=== PATIENT | male | born 1990 | race Two or more races ===

== ENCOUNTER 2017-10-04 01:31 | Inpatient (IN) | payer MEDICAID ==
[~2017-10-04] VITALS: Ht 170.2 cm; Wt 61.2 kg
[2017-10-04 01:45] VITALS: BP 138/95
[2017-10-04] MEDS ORDERED: Ketorolac 30mg Inj IV ONE (02:30)
[2017-10-04] MEDS ORDERED: Norco 5mg/325mg tab ORAL ONE (02:30)
--- NOTE | 2017-10-04 02:45 | Emergency Room Report ---
History of Present Illness General Chief Complaint: Upper Extremity Injury Source: Patient Present Illness HPI 27-year-old male presents with right shoulder pain after doing 60 pushups today prereceded by bench press bench press. Patient also did same yesterday. Usually doesnt work out. Patient denies acute pain felt while doing bench press or pushups, onset was hours after finishing work out. Denies any noticeable anatomic abnormality to right shoulder No previous shoulder dislocation Took 2x nyquill to "sleep it off" without improvement Also notes urine "darker than usual." Allergies: Coded Allergies: No Known Allergies (Unverified , 10/04/17) Patient History Past Medical History: none Past Surgical History: none Pertinent Family History: none Social History: Denies: smoking, alcohol use, drug use Immunizations: UTD Reviewed Nursing Documentation: PMH: Agreed; PSxH: Agreed Nursing Documentation-PMH Past Medical History: No History, Except For Hx Gastrointestinal Problems: Yes - gastritis Review of Systems All Other Systems: negative except mentioned in HPI Physical Exam Vital Signs Date Time Temp Pulse Resp B/P (MAP) Pulse Ox O2 Delivery O2 Flow Rate FiO2 10/04/17 01:35 98.3 79 20 138/95 97 Room Air 98.2 Sp02 EP Interpretation: reviewed, normal General Appearance: normal inspection, well appearing, no apparent distress, alert, GCS 15, non-toxic Head: normocephalic, atraumatic Eyes: bilateral eye PERRL, bilateral eye EOMI ENT: normal ENT inspection, hearing grossly normal, normal pharynx, no angioedema, normal voice, TMs + canals normal, uvula midline, moist mucus membranes Neck: normal inspection, full range of motion, supple, thyroid normal, no meningismus, no bony tend Respiratory: normal inspection, lungs clear, normal breath sounds, no rhonchi, no respiratory distress, no retraction, no accessory muscle use, no wheezing, speaking full sentences Cardiovascular #1: regular rate, rhythm, no edema, no JVD, normal capillary refill Gastrointestinal: normal inspection, normal bowel sounds, non tender, soft, no mass, no peritonitis, non-distended, no guarding, no hernia, no pulsatile mass Genitourinary: no CVA tenderness, other - Gross exam of urine: coca-color colored Musculoskeletal: normal inspection, back normal, normal range of motion, no calf tenderness, pelvis stable, Hema's Sign negative, other - Pinpoint focal ttp to anterior right shoulder. No obvious loss of shoulder contour/anatomy. Able to touch left shoulder with right hand. No ttp to upper arm, forearm, wrist /hand. 2+ distal radius. Neurovascularly intact. Neurologic: normal inspection, alert, oriented x3, responsive, tool keeper III-XII nml as tested, motor strength/tone normal, cerebellar normal, normal gait, speech normal Psychiatric: normal inspection, judgement/insight normal, mood/affect normal, no suicidal/homicidal ideation, no delusions Skin: normal inspection, normal color, no rash Lymphatic: normal inspection, no adenopathy Medical Decision Making Diagnostic Impression: Primary Impression: Exertional rhabdomyolysis Additional Impression: Transaminitis ER Course VSS, Afebrile Recent heavy exertional weight lifting, pushups Cola colored urine DDx includes rhabdo, muscle strain, rotator cuff injury Xray: no shoulder dislocation or fx Labs: CK 7,000. K normal. No MEKA Transaminitis as well. Leukocytosis likely stress reaction from severe pain Acute rhabdomyolysis Given 2 LNS IVF hydration and analgesia in the ED Right shoulder/arm compartments remain soft - low suspicion for acute compartment syndrome Med/surg admit Dr Guerra, panel at 436am Other X-Ray Diagnostic Results Other X-Ray Diagnostic Results : X-Ray ordered: Right shoulder # of Views/Limited Vs Complete: 3 View Indication: Pain EP Interpretation: Yes Interpretation: no dislocation, no soft tissue swelling, no fractures Impression: No acute disease Electronically Signed by: Dr Rahat Renee MD Last Vital Signs Date Time Temp Pulse Resp B/P (MAP) Pulse Ox O2 Delivery O2 Flow Rate FiO2 10/04/17 01:45 98.2 79 20 138/95 97 Room Air 98.2 Status: improved Disposition: ADMITTED INPATIENT Condition: Serious Referrals: NOT CHOSEN DAMON/,REFERRING (PCP) RAHAT RENEE M.D. Oct 04, 2017 02:45
[2017-10-04 03:47] LABS: HEMATOCRIT 48.8 % (42.0-52.0); HEMOGLOBIN 16.6 G/DL (14.2-18.0); MEAN CORPUSCULAR VOLUME 84 FL (80-99); PLATELET COUNT 235 K/UL (150-450); RED BLOOD COUNT 5.83 M/UL (4.70-6.10); RED CELL DISTRIBUTION WIDTH 11.3 % (11.6-14.8); WHITE BLOOD COUNT 17.2 K/UL (4.8-10.8)
[2017-10-04 03:52] LABS: ANION GAP 12 mmol/L (5-15); BLOOD UREA NITROGEN 16 mg/dL (7-18); CALCIUM 9.1 MG/DL (8.5-10.1); CARBON DIOXIDE 24 MMOL/L (21-32); CHLORIDE 99 MMOL/L (98-107); CREATININE 1.1 MG/DL (0.55-1.30); POTASSIUM 3.8 MMOL/L (3.5-5.1); SODIUM 135 MMOL/L (136-145)
[2017-10-04 04:06] LABS: ALANINE AMINOTRANSFERASE 320 U/L (12-78); ALBUMIN 4.2 G/DL (3.4-5.0); ALBUMIN/GLOBULIN RATIO 1.3 (1.0-2.7); ALKALINE PHOSPHATASE 89 U/L (46-116); ASPARTATE AMINO TRANSFERASE 1728 U/L (15-37); BILIRUBIN,TOTAL 0.6 MG/DL (0.2-1.0); CREATINE KINASE 7155 U/L (26-308)
[2017-10-04 04:22] LABS: APPEARANCE,URINE CLEAR; BILIRUBIN, URINE NEGATIVE (NEGATIVE); GLUCOSE, URINE (UA) NEGATIVE (NEGATIVE); KETONES,URINE 3+ (NEGATIVE); LEUKOCYTE ESTERASE ,URINE 1+ (NEGATIVE); NITRITE,URINE NEGATIVE (NEGATIVE); PH,URINE 7 (4.5-8.0); PROTEIN,URINE 3+ (NEGATIVE); UROBILINOGEN,URINE NORMAL MG/DL (0.0-1.0)
[2017-10-04 04:49] LABS: COLOR,URINE AMBER
[2017-10-04] MEDS ORDERED: Morphine Sulfate 2mg/ml Inj IVP ONE (06:30)
[2017-10-04] MEDS ORDERED: Morphine Sulfate 4mg/ml Inj IVP ONE (08:15)
[2017-10-04 09:30] VITALS: BP 139/91
[2017-10-04] MEDS: Morphine Sulfate 2mg/ml Inj IVP PRN ×3 (10:16→21:27)
--- NOTE | 2017-10-04 10:17 | Diagnostic Imaging Report ---
Indication: Shoulder pain after weight lifting Technique: 3 views of the left shoulder Comparison: None Findings: No acute fractures or dislocations. Joint spaces are preserved. Impression: Negative This agrees with the preliminary interpretation provided by the emergency room physician
[2017-10-04 12:00] VITALS: BP 150/92
[2017-10-04] MEDS: Sodium Bicarbonate 50 ML in 1/2 NS 1000ml 1,000 ML IV SCH ×2 (12:32→21:26)
--- NOTE | 2017-10-04 15:49 | Diagnostic Imaging Report ---
Indication: Abdominal pain, abnormal liver function tests, history of rhabdomyolysis Technique: Hui-scale and duplex images of the upper abdomen were obtained Comparison: Findings: Gallbladder is unremarkable, without stones, wall thickening, nor pericholecystic fluid. Sonographic Mccabe's sign is negative. Common bile duct measures 3 mm in diameter. No intrahepatic biliary ductal dilatation. Liver demonstrates normal echogenicity, no focal abnormality. Portal vein and hepatic veins are patent. Pancreas is unremarkable. Spleen is unremarkable. Left kidney measures 10.7 cm in length. Right kidney measures 10.4 cm length. Both kidneys demonstrate normal echogenicity. There is no right hydronephrosis. There is mild fullness of the left renal collecting system. No focal abnormality . Non-aneurysmal abdominal aorta . Prevoid bladder volume 200 mL. Postvoid bladder volume 18 mL Impression: Negative for gallstones or dilated ducts Mild left renal collecting system fullness, etiology/significance uncertain
[2017-10-04 15:56] VITALS: BP 138/88
[2017-10-04 20:00] VITALS: BP 138/88
[2017-10-05] VITALS (7 sets, daily range): BP systolic 133–164; BP diastolic 95–110
--- NOTE | 2017-10-05 05:00 | History and Physical Report ---
DATE OF ADMISSION: 10/04/2017 REASON FOR ADMISSION: Rhabdomyolysis. HISTORY OF PRESENT ILLNESS: This is a 27-year-old male with no prior medical history, who experienced pain in his right shoulder after doing 60 pushups and some bench presses over the past two days. These are not regular activities for him. Following the activities several hours later in fact he noted some discomfort of his right shoulder and took NyQuil. This morning, he noted dark urine and diffuse pain in his muscles. In the emergency room, abnormal laboratory studies including transaminitis and elevated CK enzyme have prompted hospitalization. PAST MEDICAL HISTORY: Gastritis. ALLERGIES: None. MEDICATIONS: Prior to admission, none. SOCIAL HISTORY: Nonsmoker. No alcohol or substance abuse. FAMILY HISTORY: Noncontributory. REVIEW OF SYSTEMS: Unremarkable. PHYSICAL EXAMINATION: VITAL SIGNS: Blood pressure 138/95, pulse 79, respiratory rate 20, and afebrile. HEENT: Conjunctivae pink. Sclerae are anicteric. Oropharynx clear. NECK: Supple. Jugular venous pressure normal. LUNGS: Clear. CARDIAC: Regular rhythm and rate. Normal S1, S2 with no murmur, rub, or gallop. ABDOMEN: Soft and nontender. EXTREMITIES: Right shoulder with full range of motion, but some elicited pain with mobility. NEUROLOGIC: Nonfocal. LABORATORY AND DIAGNOSTIC DATA: Lab results, white count 17.2, hemoglobin 16.6. CK 7158. AST and ALT 1728/320, alkaline phosphatase normal. Sodium 135, potassium 3.8, bicarbonate 24, BUN 16, and creatinine 1.1. X-ray of the right shoulder unremarkable. Abdominal ultrasound, slight fullness of the left collecting system of the tract, otherwise unremarkable IMPRESSION: 1. Rhabdomyolysis. 2. Transaminitis. 3. Leukocytosis, no signs of acute infection. 4. Right shoulder strain. PLAN: 1. Hydration. 2. Hepatitis serology. 3. Analgesics. 4. Follow up lab studies. 5. Reassess for further intervention based on clinical parameters. Navid Guerra M.D. DR: [place] JOB#: [id number] CC:
[2017-10-05 07:49] LABS: ALANINE AMINOTRANSFERASE 491 U/L (12-78); ALBUMIN 3.9 G/DL (3.4-5.0); ALBUMIN/GLOBULIN RATIO 1.1 (1.0-2.7); ALKALINE PHOSPHATASE 67 U/L (46-116); ANION GAP 5 mmol/L (5-15); BILIRUBIN,TOTAL 0.6 MG/DL (0.2-1.0); BLOOD UREA NITROGEN 9 mg/dL (7-18); CALCIUM 9.1 MG/DL (8.5-10.1); CARBON DIOXIDE 31 MMOL/L (21-32); CHLORIDE 102 MMOL/L (98-107); POTASSIUM 4.2 MMOL/L (3.5-5.1); SODIUM 138 MMOL/L (136-145)
[2017-10-05 07:52] LABS: BASOPHILS % (AUTO) 0.5 % (0.0-2.0); EOSINOPHILS % (AUTO) 0.9 % (0.0-3.0); HEMATOCRIT 48.6 % (42.0-52.0); HEMOGLOBIN 16.4 G/DL (14.2-18.0); LYMPHOCYTES % (AUTO) 11.5 % (20.0-45.0); MEAN CORPUSCULAR VOLUME 85 FL (80-99); MONOCYTES % (AUTO) 7.3 % (1.0-10.0); NEUTROPHILS % (AUTO) 79.8 % (45.0-75.0); PLATELET COUNT 238 K/UL (150-450); RED BLOOD COUNT 5.74 M/UL (4.70-6.10); RED CELL DISTRIBUTION WIDTH 11.4 % (11.6-14.8); WHITE BLOOD COUNT 12.5 K/UL (4.8-10.8)
[2017-10-05] MEDS: Sodium Bicarbonate 50 ML in 1/2 NS 1000ml 1,000 ML IV SCH ×3 (08:04→20:20)
[2017-10-05 08:06] LABS: ASPARTATE AMINO TRANSFERASE 5888 U/L (15-37)
[2017-10-05 09:13] LABS: CREATINE KINASE 74861 U/L (26-308)
[2017-10-05 09:14] LABS: BILIRUBIN,DIRECT 0.1 MG/DL (0.0-0.3)
[2017-10-05] MEDS ORDERED: Sodium Bicarbonate 50 ML in 1/2 NS 1000ml 1,000 ML IV SCH (15:30)
--- NOTE | 2017-10-05 21:00 | Progress Note ---
DATE: 10/05/2017 INTERNAL MEDICINE PROGRESS NOTE SUBJECTIVE: The patient continues to have pain of his right shoulder, limited mobility noted. No other symptoms. OBJECTIVE: VITAL SIGNS: Afebrile, blood pressure 138/95, heart rate 69, respiratory rate 19. NECK: Supple. LUNGS: Clear. CARDIAC: Regular. ABDOMEN: Soft. No edema. EXTREMITIES: Right shoulder with no palpable masses and can lift only partially without pain. Distal vascular status intact. LABORATORY DATA: White count 12, hemoglobin 16. Chemistry panel within normal limits. AST and ALT are increased to 5800 over 491 and CKs over 70,000. IMPRESSION: 1. Traumatic injury to right shoulder, possible muscle tear. 2. Rhabdomyolysis. 3. Transaminitis. 4. Normal abdominal ultrasound. PLAN: Continue hydration. Renal input. Gastrointestinal input. Attempts at orthopedic input. MRI of the right shoulder. The patient made aware of the progressive hydration at this time. Navid Guerra M.D. DR: Bear JOB#: [id number] CC:
--- NOTE | 2017-10-05 21:00 | Consultation ---
DATE OF CONSULTATION: 10/05/2017 NOTE: "POOR AUDIO QUALITY" GASTROENTEROLOGY CONSULTATION CONSULTING PHYSICIAN: Lucy Steinberg M.D. REFERRING PHYSICIAN: Navid Guerra M.D. CHIEF COMPLAINT: I was asked to see this patient by Dr. Navid Guerra for evaluation of rhabdomyolysis. HISTORY OF PRESENT ILLNESS: The patient is an otherwise healthy 27-year-old man who on Saturday, , and Saturday, noted very heavy weight lifting and pushup exercises to the point of he even sored his muscles. He states that his muscle soreness became so severe and his right shoulder especially was so painful that he came to the emergency room. He is unable to lift his right upper extremity at all due to pain and immobility. He has never had this sort of muscle injury of this sort. He does not use any drugs, does not drink alcohol, and does not take any herbal medications. The only medication he took for pain was 2 NyQuil capsules. He has never had any previous history of muscle or liver disease. He came to the emergency room where he was noted to have white count of 17 which is down to 12.5 today. His CPK was 7,000 on admission and it went to 74,000 today. His AST and ALT were 1700 and 320 and today they were 6000 and 500 respectively. His bilirubin is normal. PAST MEDICAL HISTORY: Otherwise negative. MEDICATIONS: None. FAMILY HISTORY: Noncontributory. SOCIAL HISTORY: The patient does not drink or smoke. He is a student, so he does not use any drugs. REVIEW OF SYSTEMS: Otherwise negative. PHYSICAL EXAMINATION: GENERAL: A pleasant young man seen in his room. HEENT: Normocephalic and atraumatic. Sclerae anicteric. Oropharynx clear. NECK: Supple. CHEST: Clear to auscultation. CARDIOVASCULAR: Regular rate. ABDOMEN: Soft. EXTREMITIES: Revealed no edema. Right shoulder was tender. The patient's right shoulder and chest wall muscles were very sore to palpation. He was unable to lift his right upper extremity. LABORATORY DATA: Noted. ASSESSMENT: This patient presents with laboratory evidence of severe rhabdomyolysis. Based on his history and his examination, this is attributed to upper shoulder injury especially on the right side. Due to the fact that he cannot even lift his right upper extremity. It is concerning and therefore, he should have an MRI of his right shoulder. I would also ask orthopedic clinical services consultant to see him for further evaluation and care. In the meantime, immobilization would be recommended and his liver tests should be followed. If the liver tests are typically elevated and false-positive, then there is no reason at this point is to treat otherwise. Should his liver deteriorate in any additional ways such as elevation of bilirubin, then further evaluation of this adverse effect can be made. I will follow his laboratory parameters closely with you. RECOMMENDATIONS: Per above discussion and per orders written in the chart. Thank you for asking me to participate in the care of this patient. Lucy Steinberg M.D. DR: Aidan JOB#: [id number] CC: SHITAL
[2017-10-05] MEDS: Morphine Sulfate 2mg/ml Inj IVP PRN (21:48)
[2017-10-06] VITALS: BP 146/105
--- NOTE | 2017-10-06 00:45 | Consultation ---
DATE OF CONSULTATION: 10/05/2017 NEPHROLOGY CONSULTATION CONSULTING PHYSICIAN: Ari Doran M.D. REFERRING PHYSICIAN: Navid Guerra M.D. REASON FOR CONSULTATION: Rhabdomyolysis. HISTORY OF PRESENT ILLNESS: The patient is a 27-year-old man who has been doing some vigorous exercises with weights and pushups in the gym and developed pain in the right upper arm and dark urine and rhabdomyolysis. Otherwise, he has been in good health. PAST SURGICAL HISTORY: None. MEDICATIONS: None. ALLERGIES: None. HABITS: He is a nonsmoker except for occasional marijuana. Drugs none. Alcohol rare. REVIEW OF SYSTEMS: Negative except for the above. PHYSICAL EXAMINATION: GENERAL: The patient is alert, well-developed man, in no acute distress. VITAL SIGNS: Normal recorded in the computer. HEENT: Sclerae nonicteric. Ocular motions intact in all directions. Oral mucosa moist. NECK: No adenopathy or thyroid enlargement. LUNGS: Clear. HEART: Regular rhythm. No murmur. ABDOMEN: Soft. No organomegaly or masses. EXTREMITIES: No edema, cyanosis, or clubbing. There is pain in the right biceps, triceps, and shoulder area and it is difficult for him to do range of motion. There is no severe swelling or evidence of a compartment syndrome. PERTINENT LABORATORY AND DIAGNOSTIC DATA: He had a CK of 7155 on 10/04/2017 and 78,861 on 10/05/2017. Electrolytes normal. Creatinine 1.1 and 1.0 serially. IMPRESSION: 1. Rhabdomyolysis due to muscle trauma, severe. 2. Elevated liver enzymes secondary to above. 3. At this time, normal renal function without risk for rhabdomyolysis-induced acute kidney injury. PLAN: The patient needs large volumes of IV fluid with sodium bicarbonate, serial electrolytes, and CPK. We will watch closely in view of the high risk status. Ari Doran M.D. DR: Farnaz JOB#: [id number] CC:
[2017-10-06] MEDS: Sodium Bicarbonate 50 ML in 1/2 NS 1000ml 1,000 ML IV SCH ×4 (02:24→17:51)
[2017-10-06 04:00] VITALS: BP 141/90
[2017-10-06 08:00] VITALS: BP 165/91
[2017-10-06 08:28] LABS: BASOPHILS % (AUTO) 0.8 % (0.0-2.0); EOSINOPHILS % (AUTO) 1.3 % (0.0-3.0); HEMOGLOBIN 16.7 G/DL (14.2-18.0); LYMPHOCYTES % (AUTO) 15.1 % (20.0-45.0); MEAN CORPUSCULAR VOLUME 84 FL (80-99); MONOCYTES % (AUTO) 7.7 % (1.0-10.0); NEUTROPHILS % (AUTO) 75.2 % (45.0-75.0); PLATELET COUNT 248 K/UL (150-450); RED BLOOD COUNT 5.82 M/UL (4.70-6.10); RED CELL DISTRIBUTION WIDTH 11.2 % (11.6-14.8); WHITE BLOOD COUNT 11.9 K/UL (4.8-10.8)
[2017-10-06 09:04] LABS: ALANINE AMINOTRANSFERASE 574 U/L (12-78); ALBUMIN 3.8 G/DL (3.4-5.0); ALBUMIN/GLOBULIN RATIO 1.1 (1.0-2.7); ALKALINE PHOSPHATASE 79 U/L (46-116); ANION GAP 9 mmol/L (5-15); ASPARTATE AMINO TRANSFERASE 2107 U/L (15-37); BILIRUBIN,TOTAL 0.4 MG/DL (0.2-1.0); BLOOD UREA NITROGEN 15 mg/dL (7-18); CALCIUM 9.1 MG/DL (8.5-10.1); CARBON DIOXIDE 29 MMOL/L (21-32); CHLORIDE 100 MMOL/L (98-107); CREATINE KINASE 6121 U/L (26-308); POTASSIUM 3.9 MMOL/L (3.5-5.1); SODIUM 138 MMOL/L (136-145)
--- NOTE | 2017-10-06 09:51 | Diagnostic Imaging Report ---
Indication: Right shoulder pain Technique: MRI of the right shoulder was performed on a 1.5 Crystal magnet without administration of intravascular or intra-articular contrast material and axial, sagittal and coronal sequences were obtained. Comparison: Plain radiographs of the right shoulder 10/04/2017 Findings: There is intramuscular edema involving the deltoid, supraspinatus and short head of the biceps. There is mild edema/fluid in the subacromial/subdeltoid bursa. There is also mild glenohumeral fluid. There is no high-grade tear of the supraspinatus, infraspinatus, subscapularis or teres minor tendons. Long head of the biceps tendon is intact. There is no gross labral tear. Acromioclavicular joint is grossly unremarkable. There is no acute fracture. No bone marrow edema is identified. Impression: Patchy intramuscular edema involving the deltoid, supraspinatus and short head of the biceps. Nonspecific myositis should be considered and clinical correlation recommended. Mild edema/fluid in the subacromial/subdeltoid bursa. Mild nonspecific glenohumeral joint fluid. No high-grade rotator cuff tendon tear.
[2017-10-06 12:00] VITALS: BP 137/100
--- NOTE | 2017-10-06 12:46 | Nephrology Progress Note ---
Assessment/Plan Problem List: (1) Right shoulder injury (2) Transaminitis (3) Exertional rhabdomyolysis Plan continue hydration Subjective Constitutional: Reports: no symptoms HEENT: Reports: no symptoms Genitourinary: Reports: no symptoms Neurologic/Psychiatric: Reports: no symptoms Objective Objective Last 24 Hour Vital Signs Date Time Temp Pulse Resp B/P (MAP) Pulse Ox O2 Delivery O2 Flow Rate FiO2 10/06/17 12:00 98.0 83 21 137/100 98 Room Air 98.0 10/06/17 08:00 98.1 87 18 165/91 97 Room Air 98.1 10/06/17 04:00 98.0 66 19 141/90 97 Room Air 98.0 10/06/17 00:00 98.1 71 18 146/105 98 Room Air 98.1 10/05/17 20:30 162/110 10/05/17 20:00 98.0 68 17 164/108 99 Room Air 98.0 10/05/17 16:00 98.0 68 18 151/97 98 Room Air 98.0 Intake and Output 10/05/17 10/06/17 19:00 07:00 Intake Total 2100 ml 2900 ml Output Total 650 ml Balance 1450 ml 2900 ml Intake Oral 800 ml 800 ml IV Total 1300 ml 2100 ml Output Urine Total 650 ml # Voids 3 1 Laboratory Tests 10/06/17 07:25: White Blood Count 11.9H, Red Blood Count 5.82, Hemoglobin 16.7, Hematocrit 49.0 , Mean Corpuscular Volume 84, Mean Corpuscular Hemoglobin 28.7, Mean Corpuscular Hemoglobin Concent 34.1, Red Cell Distribution Width 11.2L, Platelet Count 248, Mean Platelet Volume 8.0, Neutrophils (%) (Auto) 75.2H, Lymphocytes (%) (Auto) 15.1L, Monocytes (%) (Auto) 7.7, Eosinophils (%) (Auto) 1.3, Basophils (%) (Auto) 0.8, Sodium Level 138, Potassium Level 3.9, Chloride Level 100, Carbon Dioxide Level 29, Anion Gap 9, Blood Urea Nitrogen 15, Creatinine 1.0, Estimat Glomerular Filtration Rate > 60, Glucose Level 100, Calcium Level 9.1, Total Bilirubin 0.4, Aspartate Amino Transf (AST/SGOT) 2107H , Alanine Aminotransferase (ALT/SGPT) 574H, Alkaline Phosphatase 79, Total Creatine Kinase 6121H, Total Protein 7.4, Albumin 3.8, Globulin 3.6, Albumin/ Globulin Ratio 1.1 Height (Feet): 5 Height (Inches): 7.00 Weight (Pounds): 135 General Appearance: no apparent distress, alert EENT: normal ENT inspection Neck: normal alignment Cardiovascular: normal rate Respiratory/Chest: normal breath sounds Abdomen: non tender, no organomegaly Neurologic: culinary internship II-XII grossly normal YUMIKO SHEPHERD Oct 06, 2017 12:46
[2017-10-06 16:00] VITALS: BP 141/101
--- NOTE | 2017-10-06 18:01 | General Progress Note ---
Assessment/Plan Assessment/Plan Assessment - (R) shoulder muscle injury - Rhabdo - presumed false (+) LFT elevation Recommendations - Hydrate IV and PO - follow labs - Liver w/u if LFT changes persist once CPK normalized Subjective Allergies: Coded Allergies: No Known Allergies (Unverified , 10/04/17) Subjective doing better increased RUE mobility CK lower Objective Last 24 Hour Vital Signs Date Time Temp Pulse Resp B/P (MAP) Pulse Ox O2 Delivery O2 Flow Rate FiO2 10/06/17 16:00 97.9 73 20 141/101 98 Room Air 97.9 10/06/17 12:00 98.0 83 21 137/100 98 Room Air 98.0 10/06/17 08:00 98.1 87 18 165/91 97 Room Air 98.1 10/06/17 04:00 98.0 66 19 141/90 97 Room Air 98.0 10/06/17 00:00 98.1 71 18 146/105 98 Room Air 98.1 10/05/17 20:30 162/110 10/05/17 20:00 98.0 68 17 164/108 99 Room Air 98.0 Intake and Output 10/05/17 10/06/17 19:00 07:00 Intake Total 2100 ml 2900 ml Output Total 650 ml Balance 1450 ml 2900 ml Intake Oral 800 ml 800 ml IV Total 1300 ml 2100 ml Output Urine Total 650 ml # Voids 3 1 Laboratory Tests 10/06/17 07:25: White Blood Count 11.9H, Red Blood Count 5.82, Hemoglobin 16.7, Hematocrit 49.0 , Mean Corpuscular Volume 84, Mean Corpuscular Hemoglobin 28.7, Mean Corpuscular Hemoglobin Concent 34.1, Red Cell Distribution Width 11.2L, Platelet Count 248, Mean Platelet Volume 8.0, Neutrophils (%) (Auto) 75.2H, Lymphocytes (%) (Auto) 15.1L, Monocytes (%) (Auto) 7.7, Eosinophils (%) (Auto) 1.3, Basophils (%) (Auto) 0.8, Sodium Level 138, Potassium Level 3.9, Chloride Level 100, Carbon Dioxide Level 29, Anion Gap 9, Blood Urea Nitrogen 15, Creatinine 1.0, Estimat Glomerular Filtration Rate > 60, Glucose Level 100, Calcium Level 9.1, Total Bilirubin 0.4, Aspartate Amino Transf (AST/SGOT) 2107H , Alanine Aminotransferase (ALT/SGPT) 574H, Alkaline Phosphatase 79, Total Creatine Kinase 6121H, Total Protein 7.4, Albumin 3.8, Globulin 3.6, Albumin/ Globulin Ratio 1.1 Height (Feet): 5 Height (Inches): 7.00 Weight (Pounds): 135 Objective WDWN NCAT supple CTA RRR Abd soft (R) UE with less TTP and better mobility Neuro non focal BENJAMIN LEES Oct 06, 2017 18:01
[2017-10-06 20:00] VITALS: BP 130/91
--- NOTE | 2017-10-06 20:26 | Consultation ---
Consult Note Consult Note nsg called last evening for ortho consult. chart reviewed and have been waiting for MRI results. Muscular edema, and myositis consistent with rhabdomyolysis. rec UE rest and aggressive hydration. will see pt in early AM DEIRDRE RENNER Oct 06, 2017 20:26
--- NOTE | 2017-10-09 11:09 | Discharge Summary ---
Discharge Summary Hospital Course Date of Admission Oct 04, 2017 at 04:55 Date of Discharge Oct 06, 2017 at 21:00 Admitting Diagnosis rhabdomyolysis HPI Rod Caba is a 27 year old male who was admitted on Oct 04, 2017 at 04: 55 for Rhabdomyolysis Hospital Course dc summary #[id number] Discharge Condition Upon Discharge: stable Discharge Disposition Patient was discharged to Home (01) Discharge Instructions Discharge Instructions Special Instructions I have been assigned to complete a D/C Summary on this account. I was not involved in the patient management Morris Flores)Priscilla NP Oct 09, 2017 11:09
--- NOTE | 2017-10-10 08:47 | Discharge Summary 2 SIG ---
DATE OF ADMISSION: 10/04/2017 DATE OF DISCHARGE: 10/06/2017 REASON FOR ADMISSION: This is a 27-year-old male without any significant past medical history, who presented to emergency department with complaint of the right shoulder pain. The patient apparently did for two days in a row 60 pushups preceded by bench press. The patient usually does not work out. The patient denied acute pain while doing the exercise. The pain started hours after he finished exercises. No previous shoulder dislocation. No previous anatomic abnormality to right shoulder or surgery. The patient also noticed dark urine. Upon evaluation in the emergency room, the patient found to have acute rhabdomyolysis. CK was 74,861. AST was 5884. Bilirubin within normal limits. WBC 17.2. X-ray, no evidence of acute kidney injury. Urinalysis revealed no evidence of UTI. Urine-tox screen was negative. X-ray of the right shoulder revealed no shoulder dislocation or fracture. The patient was given two liters of the fluid and analgesics in the emergency room. Right shoulder and arm compartments remained soft with low suspicion for acute compartment syndrome. The patient was admitted to Med/Surg floor with diagnoses of exertional rhabdomyolysis and transaminitis. HOSPITAL COURSE: The patient admitted to Med/Surg floor. The patient started on aggressive hydration. CK and LFTs were closely monitored. GI, Nephrology, and Orthopedics consults were requested. Hepatitis serology was negative for hepatitis C and was positive for hepatitis B immunity. Utility Driver and GI both recommended to hydrate both IV and orally. Prior to discharge, CK from 74,861 down to 6121. AST down from 5884 to 2107. Bilirubin remained stable. Renal parameters and electrolytes remained stable. Abdominal ultrasound was done, and revealed no evidence of gallstone or dilated duct. Per GI, if after rhabdomyolysis resolved, LFT remained elevated, consider further liver workup. The patient would be followed for further trending of LFT and CK as an outpatient. Orthopedic surgeon had seen and evaluated the patient. Right shoulder MRI revealed patchy intramuscular edema involving deltoid, supraspinatus, and short head of the biceps. Nonspecific myositis should be considered. Mild edema/fluid in subacromial/subdeltoid bursa. No high-grade rotator cuff tendon tear. Orthopedic consult was requested. Per auditing specialist, the patient had muscular edema and myositis consistent with rhabdomyolysis and recommended rest of the right upper extremity and aggressive hydration. The patient was stable for discharge home. DIAGNOSIS DIAGNOSES: Include: 1. Exertional rhabdomyolysis. 2. Transaminitis. 3. Leukocytosis, likely reactive, stress related. WBC from initial 17.2 down to 11.9. 4. Traumatic injury to right shoulder, possible muscle tear. 5. Myositis. DISCHARGE MEDICATIONS: None. DISCHARGE INSTRUCTIONS: The patient discharged home. Follow up with primary care provider next week for checking of CK and LFT. The patient was explained about need to follow up with primary care provider. The patient also was counseled to rest right upper extremity. No exercise for now. Navid Guerra M.D. I have been assigned to dictate discharge summary on this account and I was not involved in the patient's management. [facility]iscilla [facility] N.PRocky DR: NICHOLAS JOB#: [id number] CC:
== END 2017-10-06 21:00 | disposition home or self-care (01) | DRG 351 ==
LOC: EMR 01:45 → 3E 04:55 → EDBEDREQ 05:00
DX: M62.82 Rhabdomyolysis (principal); D72.829 Elevated white blood cell count, unspecified; S46.811A Strain of other muscles, fascia and tendons at shoulder and upper arm level, right arm, initial encounter; M60.811 Other myositis, right shoulder; R74.0 Nonspecific elevation of levels of transaminase and lactic acid dehydrogenase [LDH]; Y93.B2 Activity, push-ups, pull-ups, sit-ups; Y92.39 Other specified sports and athletic area as the place of occurrence of the external cause
CPT/HCPCS: 36415; 76700; 80053; 80307; 81003; 82248; 82550; 82553; 82977; 85025; 86803; 87517; 99285; J8499